=== PATIENT | male | born 2000 | race Caucasian/White ===

== ENCOUNTER 2019-01-22 23:57 | Emergency (ER) | payer OTHER ==
[2019-01-23 00:08] VITALS: BP 133/62; PULSE 92; RESP 16; TEMP 98.5
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
== END 2019-01-23 01:00 | disposition short-term general hospital (02) ==
LOC: EC 23:57
DX: S00.81XA Abrasion of other part of head, initial encounter (principal); Z88.0 Allergy status to penicillin; V47.5XXA Car driver injured in collision with fixed or stationary object in traffic accident, initial encounter; Y93.89 Activity, other specified; Y92.410 Unspecified street and highway as the place of occurrence of the external cause
CPT/HCPCS: 99284

== ENCOUNTER → 2022-01-18 | Outpatient (CLI) | payer OTHER ==
--- NOTE | 2022-01-18 19:56 | MR ---
EXAMINATION TYPE: MR lumbar spine wo con DATE OF EXAM: 01/18/2022 COMPARISON: None HISTORY: LBP, radiates down left leg x 6 mos. Hx of fall. TECHNIQUE: Multiplanar, multisequence images of the lumbar spine were acquired without IV contrast. L1-L2: Normal disc appearance without desiccation. No herniation, protrusion or disc bulging. No ca nal stenosis is present. Foramina are patent bilaterally. L2-L3: Normal disc appearance without desiccation. No herniation, protrusion or disc bulging. No ca nal stenosis is present. Foramina are patent bilaterally. L3-L4: Normal disc appearance without desiccation. No herniation, protrusion or disc bulging. No ca nal stenosis is present. Foramina are patent bilaterally. L4-L5: Posterior disc bulge causes contact with the anterior thecal sac and possibly the proximal S1 nerve roots. L5-S1: Normal disc appearance without desiccation. No herniation, protrusion or disc bulging. No ca nal stenosis is present. Foramina are patent bilaterally. Lumbar segments are intact. No paraspinal masses are identified. Conus medullaris has a normal appe arance. Suspect there is a transitional vertebral body present denoted as L5. Endplate discogenic mar row signal changes are present at L4-5, there is associated spondylosis, there is loss of disc height signal, loss of disc height signal also present at T12-L1 with endplate discogenic marrow signal edith nge. There is no significant spinal stenosis or foraminal encroachment. IMPRESSION: Degenerative disc disease. Correlate with plain film prior to any intervention.
== END | disposition home or self-care (01) ==
LOC: RADMRIMAIN 18:32
PROVIDERS: ATTEND Family Medicine
DX: M51.36 Other intervertebral disc degeneration, lumbar region (principal); M54.32 Sciatica, left side
CPT/HCPCS: 72148